=== PATIENT | female | born 2000 | race Caucasian/White ===

== ENCOUNTER 2020-02-06 06:08 | Emergency (ER) | payer OTHER, SELFPAY ==
[2020-02-06 06:09] VITALS: BP 102/62; PULSE 86; RESP 16; TEMP 36.3; O2SAT 100
--- NOTE | 2020-02-06 06:34 | ED.WOUNDLAC ---
HPI - Wound/Laceration General Chief Complaint: Wound/Laceration Stated Complaint: i need stitches on my leg Time Seen by Provider: 02/06/20 06:33 Source: patient Mode of arrival: ambulatory Limitations: no limitations History of Present Illness HPI narrative: Patient presents for evaluation of wound to right lower extremity. Patient states she was walking, tripped, landing on a hammer which cut into her leg. Pt states they are remodeling a home currently so have many tools inside the house. Patient denies numbness. She has been ambulatory. She reports mild, aching pain. No knee pain or hip pain. No head trauma. She is up-to-date on her tetanus. Related Data Home Medications Medication Instructions Recorded Confirmed No Home Medications 07/05/19 02/06/20 Allergies Allergy/AdvReac Type Severity Reaction Status Date / Time No Known Allergies Allergy Verified 02/06/20 06:29 Review of Systems Review of Systems: Narrative: CONSTITUTIONAL: Denies fever CARDIOVASCULAR: Denies chest pain RESPIRATORY: Denies cough or dyspnea. GASTROINTESTINAL: Denies abdominal pain SKIN: Denies rash, reports right lower leg laceration MUSCULOSKELETAL: Denies back pain NEUROLOGIC: Denies headache [facility] Past Medical History Medical History (Updated 02/06/20 @ 06:38 by Munira Thomas MD) No pertinent past medical history Surgical History Surgical History (Updated 02/06/20 @ 06:36 by Munira Thomas MD) No pertinent past surgical history Social History Social History Smoking status: Never smoker Alcohol intake: never Gender identity (if verbalized by the patient): Female Exam Narrative: Exam Narrative: GENERAL: Awake, alert, conversant HEAD: Normocephalic, atraumatic. EYES: PERRLA and EOMI. ENT: Nares clear, no rhinorrhea or epistaxis. Mucous membranes moist. NECK: Supple. CHEST: No respiratory distress, breathing even and non labored HEART: Regular rate, sinus rhythm ABDOMEN:Non distended, non tender EXTREMITIES: Normal range of motion. Mild ecchymosis to the anterior tibia right lower extremity. 3 cm superficial, linear laceration to the anterior aspect of the right lower extremity just proximal to the ankle. Mild active bleeding. No deformity. No depression. SKIN: Warm, dry, no rash. NEURO:No focal deficits. Alert and oriented x3 Course Vital Signs Vital signs: Vital Signs Temperature 36.3 C L 02/06/20 06:09 Pulse Rate 86 02/06/20 06:09 Respiratory Rate 16 02/06/20 06:09 Blood Pressure 102/62 02/06/20 06:09 Pulse Oximetry 100 02/06/20 06:09 Temperature 36.3 C L 02/06/20 06:09 Pulse Rate 86 02/06/20 06:09 Respiratory Rate 16 02/06/20 06:09 Blood Pressure 102/62 02/06/20 06:09 Pulse Oximetry 100 02/06/20 06:09 Procedures Laceration Laceration 1: Date: 02/06/20 Time: 06:36 Site: lower extremity Side (If applicable): right Size (cm): 3 Description: linear Depth: simple, single layer Local Anesthetic: lidocaine 1% and with epi Amount of anesthesia used (mL): 5 Pre-repair: wound explored, irrigated and irrigated extensively ====== Skin Level ====== Skin layer closed with: prolene Size (cm): 5-0 Number of sutures: 8 Technique: simple, interrupted ====== Subcutaneous Layer ====== ====== Muscle Layer ====== ====== Tendon Layer ====== MDM - Wound/Laceration MDM Narrative Medical decision making narrative: Pt with superficial laceration to right lower extremity. No tissue avulsion. No deformity. Patient is neurovascularly intact. Patient is ambulatory without pain, thus I doubt any osseous injury. Patient is up-to-date on her tetanus. Wound was cleaned, irrigated and sutured. Patient was given wound discharge instructions advised to keep wound clean and dry. Sutures to be removed within
[2020-02-06 06:54] VITALS: PULSE 80; RESP 20; O2SAT 100
== END 2020-02-06 07:02 | disposition home or self-care (01) ==
PROVIDERS: Emergency Provider Emergency Medicine; PCP Pediatrics
DX: S81.811A Laceration without foreign body, right lower leg, initial encounter (principal); W01.118A Fall on same level from slipping, tripping and stumbling with subsequent striking against other sharp object, initial encounter
CPT/HCPCS: 12002; 99282

== ENCOUNTER 2020-12-22 01:57 | Emergency (ER) | payer OTHER, SELFPAY ==
[2020-12-22] VITALS (10 sets, daily range): BP systolic 103–130; BP diastolic 71–97; PULSE 82–103; RESP 14–20; TEMP 36.7; O2SAT 98–100
--- NOTE | ~2020-12-22 | XR_ITS ---
EXAMINATION: XR chest 1V portable EXAM DATE: 12/22/2020 03:28 INDICATION: Left-sided chest pain and shortness of breath. TECHNIQUE: Portable AP frontal chest x-ray was obtained. Comparison is made to prior examination from 08/24/2018. FINDINGS: The lungs are clear. There are no pleural effusions. Cardiac silhouette is prominent but magnified on this AP technique. There is no pneumothorax suspected. The bones and soft tissues are unremarkable. IMPRESSION: No acute cardiopulmonary findings. Reviewed, dictated and finalized at location A.
--- NOTE | 2020-12-22 02:04 | ECG_ITS ---
Measurements Intervals [place] Rate: 87 P: 36 KS: 140 QRS: 11 QRSD: 74 T: 16 QT: 352 QTc: 425 Interpretive Statements SINUS RHYTHM MINIMAL Q WAVES- HIGH LATERAL LEADS BASELINE ARTIFACT- I, II, III, AVR, AVL, AVF, V1-V2 BORDERLINE ECG Electronically Signed On 12-22-2020 6:17:32 CDT by Chris Painting D.O.
[2020-12-22 02:18] LABS: Basophils Absolute Auto 0.1 K/mm3 (0.0-0.1); Basophils Percent Auto 0.4 % (0.2-1.2); Eosinophils Absolute Auto 0.1 K/mm3 (0-0.3); Eosinophils Percent Auto 0.6 % (0-4.4); Hematocrit 36.5 % (37.0-47.0); Hemoglobin 12.1 g/dL (12.0-15.0); Immature Granulocyte Absolute 0.41 K/mm3 (0.00-0.031); Immature Granulocyte Percent A 2.1 % (0-0.5); Lymphocytes Absolute Auto 2.31 K/mm3 (0.9-3.2); Lymphocytes Percent Auto 11.8 % (18.3-44.2); Mean Corpuscular HGB Conc 33.2 g/dl (32-36); Mean Corpuscular Hemoglobin 31.3 pg (26-34); Mean Corpuscular Volume 94.3 fl (80-100); Mean Platelet Volume 10.6 fl (7.4-10.4); Monocytes Absolute Auto 1.6 K/mm3 (0.1-0.6); Neutrophils Absolute Auto 15.1 K/mm3 (1.3-6.7); Neutrophils Percent Auto 77.1 % (45.5-73.1); Platelet Count Result 174 k/mm3 (150-375); Red Blood Count 3.87 M/mm3 (4.2-5.4); Red Cell Distribution Width 12.5 % (11.5-14.5); White Blood Count 19.5 K/mm3 (4.5-10.0)
[2020-12-22 02:30] LABS: Anion Gap 7 mmol/L (8-16); Blood Urea Nitrogen 3 mg/dL (7-17); Calcium 8.8 mg/dL (8.4-10.2); Carbon Dioxide 22 mmol/L (22-30); Chloride 108 mmol/L (98-107); Estimated CRCL calculation 146 ml/min; Estimated Glomerular Filt Rate > 60; Glucose 102 mg/dL (65-105); Potassium 3.8 mmol/L (3.4-5.0); Sodium 137 mmol/L (137-145)
[2020-12-22 02:35] LABS: Partial Thromboplastin Time 28.4 SECONDS (22.3-36.8); Prothrombin Time 13.3 Seconds (11.1-14.7)
--- NOTE | 2020-12-22 02:56 | ECG_ITS ---
Measurements Intervals [place] Rate: 89 P: 74 AK: 147 QRS: 36 QRSD: 74 T: 37 QT: 361 QTc: 442 Interpretive Statements SINUS RHYTHM WITH SINUS ARRHYTHMIA MINIMAL Q WAVES- HIGH LATERAL LEADS ST ELEVATION IN DIFFUSE LEADS- PROBABLY EARLY REPOLARIZATION BASELINE ARTIFACT- I, II, III, AVR, AVL, AVF, V1-V6 BORDERLINE ECG Electronically Signed On 12-22-2020 6:19:33 CDT by Chris Painting D.O.
--- NOTE | 2020-12-22 02:57 | ED.CHESTPAIN ---
HPI - Chest Pain General Chief Complaint: Chest Pain Stated Complaint: CP Time Seen by Provider: 12/22/20 02:09 Source: patient and RN notes reviewed Mode of arrival: ambulatory Limitations: no limitations History of Present Illness HPI narrative: This is a 20 year old female approximately 33 weeks GA who presents for evaluation of multiple complaints. She states she thinks her blood pressure has been elevated for that past 2 days because she has increased swelling to her legs. She also reports around 11 pm tonight she developed epigastric and substernal chest pain that radiates to her left arm. She also had associated nausea and vomiting. She also reports she feels like she can not breath. She denies cough or fever. She denies issues with . She denies vaginal bleeding. Her OBGYN in located in [place], [place]. Pain currently 01/20. Related Data Home Medications Medication Instructions Recorded Confirmed No Home Medications 07/05/19 02/06/20 Allergies Allergy/AdvReac Type Severity Reaction Status Date / Time No Known Allergies Allergy Verified 12/22/20 02:06 Review of Systems Review of Systems: All systems reviewed & are unremarkable except as noted in HPI and below PMFSH Past Medical History Medical History (Updated 12/22/20 @ 07:55 by Anabela Post MD) No pertinent past medical history Surgical History Surgical History (Updated 02/06/20 @ 06:36 by Munira Thomas MD) No pertinent past surgical history Social History Social History Smoking status: Never smoker Alcohol intake: never Gender identity (if verbalized by the patient): Female Exam Const: General: no acute distress and alert Orientation/consciousness: patient oriented x3 Eyes: EOM: EOMs intact bilaterally Resp: Effort & Inspection: normal respiratory effort and no retractions Auscultation: clear to auscultation bilaterally Cardio: Rate: regular rate Rhythm: regular rhythm Heart sounds: no murmurs GI: GI Palp: Yes Soft to palpation, Yes Tenderness to palpation present (GI) (epigastric), No Guarding due to palpation present (GI) and No Rigid due to palpation Auscultation: normal bowel sounds Skin: General skin exam: normal color Rashes: no rashes Neuro: General: patient oriented x3, moves all extremities and CN's II-XI intact bilaterally Extrem: Other: bilateral ankle swelling Course Reevaluation(s) Reevaluation #1: I discussed with patient the recommendations to transfer to higher level of care. PAtient states she does not want to be transfer to [place]. I explain our doctors recommend transfer to another facility due to high risk. She states her symptoms have completely resolved with nitro past . She was also given metoprolol and aspirin. Date: 12/22/20 Time: 04:30 Reevaluation #2: Patient was stating that she wanted to leave because she did not want to be transferred to [place]. She is worried about getting a ride back home after hospitalization. Her nurse and I spoke with her to strongly recommend transfer. She is now agreeable. I gave report to day team [facility] doctor at [facility]. Date: 12/22/20 Time: 07:55 Consultations Consultation #1: I Spoke with Dr. Painting, lens and frames prescription clerk town planner. He recommends treatment with beta mal and nitroglycerin . He does not recommend heparin. Patient's pain is resolving after nitroglycerin Date: 12/22/20 Time: 03:56 Consultation #2: I spoke with Dr. Lira who states he does not have much input. Patient may possible need to be transferred to higher level of care Date: 12/22/20 Time: 04:30 Consultation #3: I spoke with Dr. romo of [facility] at [facility] who accepts patient to service. Date: 12/22/20 Time: 06:22 Vital Signs Vital signs: Vital Signs Temperature 98.0 F 12/22/20 02:00 Pulse Rate 97 12/22/20 02:00 Respiratory Rate 16 12/22/20 02:00 Blood Pressure 130/97 H 12/22/20 02:00 Pu
[2020-12-22 03:02] LABS: Troponin I 0.059 ng/mL (0.000-0.034)
[2020-12-22] MEDS: BELLADONNA ALK/PHENOB ELIX 10 ML, MAG HYDROX/ALUMINUM HYD/SIMETH 30 ML, LIDOCAINE HCL 2... PO (03:28)
[2020-12-22] MEDS: ONDANSETRON INJ 4 MG/2 ML VIAL IV PUSH (03:29)
[2020-12-22] MEDS: NITROGLYCERIN OINTMENT 1 INCH DOSE TRANSDERM (03:34)
[2020-12-22 03:45] LABS: Add Urine Microscopic? YES; Appearance Urine Cloudy (Clear); Bacteria Urine 2+ /hpf; Bilirubin Urine Negative (Negative); Blood Urine Negative (Negative); Color Urine Yellow (Yellow); Glucose Urine UA Negative (Negative); Ketones Urine Negative (Negative); Leukocyte Esterase Ur Trace LEU/UL (Negative); Mucus Urine Rare /lpf; Nitrate Urine Negative (Negative); Protein Urine 1+ mg/dL (Negative); RBC Urine 0-2 /hpf (0-2); Specific Grav Ur 1.017 (1.001-1.035); Squamous Epithelial Cell Urine Many /hpf (Few); Urobilinogen Urine Negative mg/dL (<2.0)
[2020-12-22 03:46] LABS: Alanine Aminotransferase 16 U/L (4-35); Albumin Level 3.3 g/dL (3.5-5.1); Alkaline Phosphatase 92 U/L (38-126); Aspartate Amino Transferase 25 U/L (14-36); Bilirubin,Total 0.1 mg/dL (0.2-1.3); Lipase 33 U/L (23-300); Uric Acid 3.3 mg/dL (2.5-7.5)
[2020-12-22 03:57] LABS: NT Pro B Type Natriuretic Pept 129 pg/mL (5-100)
[2020-12-22] MEDS: METOPROLOL TARTRATE 50 MG TAB 25 MG PO (04:20)
[2020-12-22] MEDS: MORPHINE SULFATE (*CRX) 2 MG/ML INJ IV PUSH (04:26)
--- NOTE | 2020-12-22 05:56 | PC.NURSE ---
called [facility] for Dr. Martino contact information.
--- NOTE | 2020-12-22 06:31 | PC.NURSE ---
Spoke with Linda for pt. report about pt. states she will contact [facility] for pt. transport and they should be leaving at approx. [phone].
[2020-12-22] MEDS: ASPIRIN 81 MG CHEWABLE TABLET 324 MG PO (06:45)
--- NOTE | 2020-12-22 06:47 | PC.NURSE ---
Pt. states she does not know if she wants to go all the way to [place]. She is does not think she would have a ride home. ERP at beside and discussing the risks of not staying at a hospital. pt. states she is going to contact her father. Transfer center notified of ptSoco rahman.
--- NOTE | 2020-12-22 07:06 | PC.NURSE ---
Spoke with Anna WoodsonGlass Unloading Equipment Tender at [place]. States they will do what they can to assist the pt. to go home. Pt. updated on this information.
[2020-12-22 07:10] LABS: Troponin I 0.077 ng/mL (0.000-0.034)
[2020-12-22 08:05] LABS: Troponin I 0.069 ng/mL (0.000-0.034)
== END 2020-12-22 08:35 | disposition short-term general hospital (02) ==
PROVIDERS: Family Medicine; Emergency Provider General Practice; PCP Pediatrics
DX: O26.893 Other specified pregnancy related conditions, third trimester (principal); R07.2 Precordial pain; R74.8 Abnormal levels of other serum enzymes; R94.31 Abnormal electrocardiogram [ECG] [EKG]; Z3A.33 33 weeks gestation of pregnancy
CPT/HCPCS: 36415; 71045; 80048; 80076; 81001; 83690; 83880; 84484; 84550; 85025; 85610; 85730; 87086; 87088; 93005; 96374; 96375; 99284; A9270; J2270; J2405

== ENCOUNTER 2021-08-29 14:02 | Emergency (ER) | payer OTHER, SELFPAY ==
[2021-08-29 14:12] VITALS: BP 144/96; PULSE 99; RESP 16; TEMP 37.1; O2SAT 99
--- NOTE | 2021-08-29 14:14 | ED.FEMALEGU ---
HPI - Female Genitourinary General Chief complaint: Urogenital-Female Stated complaint: possible bladder infection Time Seen by Provider: 08/29/21 14:21 Source: patient Mode of arrival: ambulatory Limitations: no limitations History of Present Illness HPI Narrative: 20 yo F presents with c/o urinary frequency, urgency, dysuria, pelvic cramping for 3 days. taking Azo with some relief. no fever/chills. no flank pain. LMP 1 wk ago. denies . no concerns for STI. All systems reviewed and negative except as noted above. Related Data Allergies Allergy/AdvReac Type Severity Reaction Status Date / Time No Known Allergies Allergy Verified 08/29/21 14:11 Review of Systems Review of Systems: All systems reviewed & are unremarkable except as noted in HPI and below Constitutional: Constitutional: Reports as per HPI Eyes: Eyes: Reports as per HPI ENT: Reports as per HPI Cardiovascular: Cardiovascular: Reports as per HPI Respiratory: Respiratory: Reports as per HPI Gastrointestinal: Gastrointestinal: Reports as per HPI Genitourinary: Genitourinary: Reports nocturia, Reports dysuria and Reports urinary urgency Musculoskeletal: Musculoskeletal: Reports as per HPI Integumentary/Breasts: Skin/Breast: Reports as per HPI Allergic/Immunologic: Allergic/Immunologic: Reports as per HPI [facility] Past Medical History Medical History (Updated 08/29/21 @ 14:37 by Nila Max NP) No pertinent past medical history Surgical History Surgical History (Updated 02/06/20 @ 06:36 by Munira Thomas MD) No pertinent past surgical history Social History Social History Smoking status: Never smoker Alcohol intake: never Gender identity (if verbalized by the patient): Female Comments At time of signature, agree with nursing past medical, surgical, social and family history. There is no relevant family history pertinent to the presenting complaint. Exam Const: General: cooperative, healthy appearing, no acute distress, well developed, alert and awake Nutritional Appearance: average body habitus HENMT: Head: normocephalic Eyes: General: appearance normal, both eyes and all related structures Neck: Neck: full ROM Resp: Effort & Inspection: normal respiratory effort and able to speak in complete sentences Auscultation: clear to auscultation bilaterally Cardio: Rate: regular rate Rhythm: regular rhythm Back/Spine/Pelvis: Back: no CVA tenderness Skin: General skin exam: normal color and no rashes or lesions noted Neuro: General: oriented to person, oriented to place and oriented to time Extrem: General: normal to inspection and full ROM Psych: Appearance: grossly normal and well kempt Course Course Level of Care: Express Care Visit MDM - Female Genitourinary MDM Narrative Medical decision making narrative: UA neg findings. due to pt's symptoms will treat with abx. she has no concerns for STI. no vaginal complaints. Differential Diagnosis Differential diagnosis: Likely urinary tract infection and cystitis Medical Records Attestation: I reviewed the patient's medical records. Lab Data Attestation: I reviewed the patient's lab results. Discharge Plan Discharge Clinical Impression: Urinary tract infection Patient Disposition: Home, Self-Care Condition: Stable Instructions: Antibiotic Form Additional Instructions: We will send a urine culture off to the lab; if the culture identifies an organism that the prescribed antibiotic will not treat, you will receive a phone call from an urgent care staff member and an appropriate antibiotic will be prescribed. -Your symptoms should begin to improve within a day of starting antibiotics. But you should finish all the antibiotic pills you get. Otherwise your infection might come back. -Also recommend: drink more fluid. It might help flush out germs, and it does no harm -Tylenol/ibuprofen as
== END 2021-08-29 14:40 | disposition home or self-care (01) ==
PROVIDERS: Emergency Provider Nurse Practitioner Family; PCP Pediatrics
DX: N39.0 Urinary tract infection, site not specified (principal)
CPT/HCPCS: 81003; 87077; 87086; 87147; 87181; 87186; 99213; G0463